=== PATIENT | female | born 1995 | race Caucasian/White ===

== ENCOUNTER 2019-05-21 17:02 | Emergency (ER) | payer BC ==
[2019-05-21] MEDS ORDERED: Lidocaine 1% 20 ML MDV INJECT ONE (17:43)
[2019-05-21] MEDS ORDERED: Lidocaine 1% 30 ML SDV ONE (18:22)
[2019-05-21] MEDS ORDERED: Lidocaine 1% 30 ML SDV INJECT SCH (18:30)
--- NOTE | 2019-05-21 19:23 | EDM.PDOC ---
ED HPI GENERAL MEDICAL PROBLEM - General Chief Complaint: Laceration Stated Complaint: LT THUMB LACERATION Time Seen by Provider: 05/21/19 17:30 Source of Information: Reports: Patient History Limitations: Reports: No Limitations - History of Present Illness INITIAL COMMENTS - FREE TEXT/NARRATIVE: 23-year-old female presents for a laceration to the left distal thumb. Patient reports she was cutting cheese when the knife slipped and cut her left distal thumb. Has a laceration to the distal thumb extending along the nail. No numbness, tingling or decreased ROM. tetanus is up to date. Left Hand Pain Score (Numeric/FACES): 3 - Related Data Allergies Allergy/AdvReac Type Severity Reaction Status Date / Time No Known Allergies Allergy Verified 05/21/19 17:14 Home Meds: Home Meds . [No Known Home Meds] 05/21/19 [History] Past Medical History HEENT History: Reports: Impaired Vision Other HEENT History: wears contacts/eyeglasses. Gastrointestinal History: Reports: Other (See Below) Other Gastrointestinal History: liver laceration. [employer]EL[employer] History: Reports: Neurological History: Reports: Concussion Social & Family History - Tobacco Use Smoking Status *Q: Current Every Day Smoker Years of Tobacco use: 3 Packs/Tins Daily: 0.5 Second Hand Smoke Exposure: No - Caffeine Use Caffeine Use: Reports: Coffee, Energy Drinks, Soda, Tea - Recreational Drug Use Recreational Drug Use: No ED ROS GENERAL - Review of Systems Review Of Systems: See Below Musculoskeletal: Reports: Other (left hand distal thumb) Skin: Reports: Wound (left hand distal thumb) Neurological: Denies: Numbness, Tingling ED EXAM, SKIN/RASH Exam: See Below Exam Limited By: No Limitations General Appearance: Alert, WD/WN, No Apparent Distress Respiratory/Chest: No Respiratory Distress Cardiovascular: Normal Peripheral Pulses Peripheral Pulses: 3+: Radial (L) Extremities: Normal Inspection (no obvious abnormality), Normal Range of Motion , Normal Capillary Refill, Other (laceration extending from the distal thumb along the nail arrpoximately 1.5cm in length) Psychiatric: Normal Affect, Normal Mood Skin: Warm, Dry, Normal Color, Wound/Incision Location, Skin: Upper Extremity, Left Characteristics: Linear Associated features: Tenderness ED SKIN PROCEDURES - Laceration/Wound Repair Digit - 1st (Thumb) Appearance: Subcutaneous, Linear Distal NVT: Neuro & Vascular Intact, No Tendon Injury Anesthetic Type: Local Local Anesthesia - Lidocaine (Xylocaine): 1% Plain Local Anesthetic Volume: 2cc Closed with: Sutures Lac/Wound length In cm: 1.5 Suture Size: 5-0 # of Sutures: 3 Sterile Dressing Applied: Nurse Tetanus Status Addressed: Yes Complications: No Course - Vital Signs Last Recorded V/S: Last Vital Signs Temp 98.3 F 05/21/19 17:10 Pulse 80 05/21/19 17:10 Resp 16 05/21/19 17:10 BP 135/93 H 05/21/19 17:10 Pulse Ox 97 05/21/19 17:10 - Orders/Labs/Meds Meds: Medications Discontinued Medications Generic Name Dose Route Start Last Admin Trade Name Delio PRN Reason Stop Dose Admin Lidocaine HCl 20 ml 05/21/19 17:43 05/21/19 18:29 Xylocaine 1% INJECT 05/21/19 17:44 Not Given ONETIME ONE Lidocaine HCl 30 ml 05/21/19 18:30 05/21/19 18:28 Xylocaine-Mpf 1% INJECT 30 ml STAT LINDSAY Administration Lidocaine HCl Confirm 05/21/19 18:22 05/21/19 18:29 Xylocaine-Mpf 1% Administered 05/21/19 18:23 Not Given Dose 30 ml .ROUTE [facility] [facility] - Re-Assessments/Exams Free Text/Narrative Re-Assessment/Exam: 05/21/19 19:19 3 sutures applied to the left distal thumb. Patient tolerated well. Discharge instructions as documented. Departure - Departure Time of Disposition: 19:19 Disposition: Home, Self-Care 01 Condition: Good Clinical Impression: Laceration - Discharge Information *PRESCRIPTION DRUG MONITORING PROGRAM REVIEWED*: No *COPY OF PRESCRIPTION DRUG MONITORING REPORT IN PATIENT ESTRELLA: No Instructions: Laceration Care, Adult Referrals: PCP,None [Primary Care Provider] - Forms: ED Department Discharge Additional Instructions: wash the wound with gentle soap and water. May apply topical antibacterial ointment such as neosporin or bacitracin. Do not submerge the wound for long periods of time. monitor for signs of infection such as increased swelling, pus or redness. Present to the clinic of the ER should these develop. Have the sutures removed in 10 days. The [facility] can remove these sutures for free. Call [phone] to schedule with a provider there for suture removal. OTC tylenol or motrin as needed for discomfort. Please return to the ER should your symptoms change or worsen .
== END 2019-05-21 19:44 | disposition home or self-care (01) ==
LOC: JD.ED 17:02
DX: S61.012A Laceration without foreign body of left thumb without damage to nail, initial encounter (principal); F17.210 Nicotine dependence, cigarettes, uncomplicated; W26.0XXA Contact with knife, initial encounter
CPT/HCPCS: 12001; 99282; J2001